=== PATIENT | female | born 1990 | race Hispanic/Latino ===

== ENCOUNTER → 2021-01-17 12:13 | Outpatient (CLI) | payer MEDICAID, SELFPAY ==
--- NOTE | 2021-01-17 12:14 | DI.US.S_ITS ---
PROCEDURE: US OB LIMITED INDICATIONS: INITIAL DATING VIABILITY OUTSIDE/PRIOR DATING DATA: Last menstrual period (LMP): October 17, 2020 . LMP-based estimated date of delivery (GARRISON): July 24, 2021 . First dating scan (date and location): [facility]: January 17, 2021 . Estimated date of delivery (GARRISON) from first dating scan: July 05, 2021 . TECHNIQUE: Real-time scanning was performed of the fetus, with image documentation. COMPARISON: None. FINDINGS: A single living intrauterine gestation is present. Presentation: Transverse left. Placenta: Placental position is posterior right , without previa. heart rate: 144 beats per minute. Maternal cervical canal: 4.9 cm long. Normal lower limit is 2.5 cm. OB gestational age measurements: BPD: 3.3 cm HC: 11.9 cm: AC: 9.6 cm FL: 1.8 cm Composite gestational age today: 15 weeks, 6 days. IMPRESSION: Single live intrauterine gestation as detailed above. Dictated by: Chirag Roe M.D. on 01/17/2021 at 13:54 Approved by: Chirag Roe M.D. on 01/17/2021 at 14:00
[2021-01-17 13:13] LABS: Add Manual Diff / Slide Review NO; Basophils Absolute Auto 0 /uL (0-100); Basophils Percent Auto 0.3 % (0-2); Eosinophils Absolute Auto 100 /uL (0-450); Eosinophils Percent Auto 1.1 % (2-4); Hematocrit 37.1 % (36-46); Hemoglobin 12.4 g/dL (12.0-16.0); Lymphocytes Absolute Auto 2000 /uL (1100-4500); Lymphocytes Percent Auto 20.3 % (25-40); Mean Corpuscular HGB Conc 33.6 % (30-36); Mean Corpuscular Hemoglobin 31.9 PG (26-34); Mean Corpuscular Volume 95.1 fL (80-100); Monocytes Absolute Auto 500 /uL (0-900); Neutrophils Absolute Auto 7100 /uL (1500-7000); Neutrophils Percent Auto 73.3 % (50-75); Platelet Count 241 X10^3/uL (150-400); Red Cell Distribution Width 12.4 % (11.6-14.8); White Blood Cell Count 9.7 X10^3/uL (4.5-11.0)
[2021-01-17 13:19] LABS: Appearance Urine UA CLOUDY; Bilirubin Urine UA NEGATIVE (NEGATIVE); Color Urine UA YELLOW; Glucose Urine UA NEGATIVE (Negative); Ketones Urine UA NEGATIVE (NEGATIVE); Leukocyte Esterase Urine UA 3+ (NEGATIVE); Nitrite Urine UA NEGATIVE (Negative); Occult Blood Urine UA TRACE-INTACT (Negative); Protein Urine UA NEGATIVE (Negative); Urobilinogen Urine UA 0.2 E.U./dL (0.2)
[2021-01-17 13:45] LABS: pH Urine UA 6.5 (4.5-8.0)
[2021-01-17 13:46] LABS: Amorphous Sediment Urine 1+; Bacteria Urine Many (>30); Culture Indicated Urine Specimen Cultured; RBC Urine 0-1/HPF (0-5/HPF); Renal Epithelial Cells Urine 0-1/HPF (0-1/HPF); Squamous Epithelial Cell Urine 5-10 /HPF (0-5/HPF); WBC Urine 5-10/HPF (0-5/HPF)
[2021-01-17 16:14] LABS: Hepatitis B Surface Antigen NEGATIVE s/c (NEGATIVE)
[2021-01-17 16:35] LABS: HIV 1 & 2 Ab/Ag 4th Gen Combo NEGATIVE (NEGATIVE); Hep C Virus Ab w/Reflex Quant NEGATIVE s/c (NEGATIVE)
[2021-01-18 06:17] LABS: RPR Screen Non Reactive (Non Reactive)
[2021-01-18 09:02] LABS: Varicella IgG Antibody 724 index (Immune >165)
== END ==
PROVIDERS: PCP Specialist; Referring Provider Specialist; Visit Provider Specialist
DX: Z3A.15 15 weeks gestation of pregnancy; Z36.87 Encounter for antenatal screening for uncertain dates
CPT/HCPCS: 36415; 76815; 80055; 81003; 81015; 86787; 86803; 86850; 86900; 86901; 87086; 87389

== ENCOUNTER → 2021-02-27 10:23 | Outpatient (CLI) | payer MEDICAID, SELFPAY ==
--- NOTE | 2021-02-27 10:24 | DI.US.S_ITS ---
PROCEDURE: US OB >= 14 WEEKS FETUS INDICATIONS: 20 WEEK ANATOMIC SURVEY OUTSIDE/PRIOR DATING DATA: Last menstrual period (LMP): October 17, 2020. LMP-based estimated date of delivery (GARRISON): July 24, 2021. First dating scan (date and location): [facility]; January 17, 2021. Estimated date of delivery (GARRISON) from first dating scan: July 05, 2021. The calculations are made using the ultrasound GARRISON of July 08, 2021. TECHNIQUE: Real-time scanning was performed of the fetus, with image documentation and biometric measurements. COMPARISON: None. FINDINGS: General: A single living intrauterine gestation is present. Presentation: Variable. Placenta: Placental position is posterior right , without previa. Amniotic fluid index: 12.4 cm, normal range is 5-24 cm. Single deepest vertical pocket is 3.6 cm. heart rate: 157 beats per minute. Maternal cervical canal: 5.3 cm long. Normal lower limit is 2.5 cm. biometrics: Biparietal diameter: 5 cm Head circumference: 18.8 cm Abdominal circumference: 16.7 cm Femur length: 3.4 cm Clinically estimated gestational age: 21 weeks, 5 days Composite gestational age from present scan: 21 weeks, 2 days Estimated weight and percentile: 414 g +/-61 g; 24th percentile Anatomic survey: Neuro: Ventricles are non-dilated at less than 10 mm. Cisterna magna is normal at 3-11 mm. Cerebellum is normal in size and morphology. Nuchal skin fold: Normal at less than 6 mm between 14-21 weeks gestational age. Face: Suboptimally visualized. Spine: No evidence for spina bifida. Heart: 4-chambered heart is present, with normal ventricular outflow tracts. Diaphragm: Diaphragm is intact. Stomach: Left-sided stomach is present. Kidneys: No hydronephrosis. Normal is less than 5 mm in 2nd trimester, less than 7 mm in 3rd trimester. Cord: 3-vessel cord has orthotopic insertion. Bladder: Normal in size. Extremities: All 4 extremities identified. IMPRESSION: Live single intrauterine gestation as detailed above. We strive to produce accurate, complete, and clear reports of imaging services. To assist us in improving patient care, this report was composed using standard report templates and voice recognition software. Therefore, it may contain abnormal punctuation, insertions and/or omissions. Occasional wrong-word or sound-alike substitutions may occur. Though we review the report and make efforts to correct it, we do recommend that the report be read carefully in proper context to recognize any text inaccuracies. Dictated by: Chirag Roe M.D. on 02/27/2021 at 12:15 Approved by: Chirag Roe M.D. on 02/27/2021 at 12:19
== END ==
PROVIDERS: PCP Specialist; Referring Provider Specialist; Visit Provider Specialist
DX: Z36.89 Encounter for other specified antenatal screening (principal); Z3A.21 21 weeks gestation of pregnancy
CPT/HCPCS: 76811

== ENCOUNTER → 2021-06-20 13:37 | Outpatient (CLI) | payer MEDICAID, SELFPAY ==
[2021-06-21 14:24] LABS: Strep Grp B PCR NEG for Grp B Strep
== END ==
PROVIDERS: PCP Specialist; Visit Provider Specialist
DX: Z34.83 Encounter for supervision of other normal pregnancy, third trimester (principal); Z3A.37 37 weeks gestation of pregnancy
CPT/HCPCS: 87653

== ENCOUNTER 2021-07-09 01:12 | Outpatient (CLI) | payer MEDICAID, SELFPAY | END 2021-07-09 02:00 | disposition home or self-care (01) | LOC: OB 07-11 06:55 | PROVIDERS: PCP Specialist; Referring Provider Specialist; Visit Provider Specialist | DX: O48.0 Post-term pregnancy (principal); Z3A.40 40 weeks gestation of pregnancy | CPT/HCPCS: 59025; 76815; G0378; G0379 ==

== ENCOUNTER 2021-07-10 16:58 | Outpatient (CLI) | payer MEDICAID, SELFPAY ==
--- NOTE | 2021-07-10 18:14 | PM.OBTRLD ---
Visit Information Visit Information Date of evaluation: 07/10/21 Primary OB Provider: Peyton Graham Reason for Evaluation: Yes non-stress test non-stress test reason: other (post dates) [facility] Medical History (Updated 07/10/21 @ 18:15 by Peyton Graham MD) Acute blood loss anemia Anemia pain Vaginal delivery Family History (Updated 01/16/21 @ 14:40 by Lyssa Suero RN) Mother Hyperlipidemia Type 2 diabetes mellitus Father Healthy adult male Grandmother No problems noted. Grandfather Myocardial infarction Hyperlipidemia Hypertension Grandmother Dementia Grandfather Type 2 diabetes mellitus Social History marital status: unmarried,living together number of children: 3 household members: spouse and children lives independently: Yes caregiver/support person: No housing: apartment pets and animals: No education level: high school occupational status: employed ([employer]) current occupational exposures/hazards: No alex/methodist: Tenriism special alex needs: No seatbelt use: always do you feel safe at home: Yes Smoking Status: Never smoker second hand exposure: No alcohol intake: former (Pre-: Occasional/once a month or less.) substance use type: does not use during the past year weight has: remained stable well-balanced diet: daily or most days daily servings fruits/ve-4 caffeine: Yes (Coffee: has cut down since , aware of limit.) Type(s) of exercise: walking and running (Pre-, stopped with . ) frequency: 3-4 times per week duration: 30-45 minutes/day Evaluation Evaluation Baseline heart rate: 140 Variability: Moderate (11-25) monitor accelerations: Present Monitor Decelerations: Absent Contraction Frequency (minutes): 10 Uterine Contraction Intensity: Mild Category of Tracing: Reactive Status: Category l Diagnosis, Plan/Disposition Final Diagnosis (1) : Status: Acute (2) 40 weeks gestation of : Status: Acute Plan/Disposition Plan: Reactive nonstress test with normal biophysical profile in the office. Patient is scheduled for induction on 07/15/2021 routine precautions reviewed OB Disposition: home
== END 2021-07-10 17:32 | disposition home or self-care (01) ==
LOC: OB 07-11 06:56
PROVIDERS: PCP Specialist; Referring Provider Specialist; Visit Provider Specialist
DX: O48.0 Post-term pregnancy (principal); Z3A.40 40 weeks gestation of pregnancy
CPT/HCPCS: 59025; G0378; G0379

== ENCOUNTER 2021-07-15 07:37 | Inpatient (IN) | payer MEDICAID, SELFPAY ==
[2021-07-15 08:00] VITALS: BP 123/76
[2021-07-15 08:15] LABS: Add Manual Diff / Slide Review NO; Basophils Absolute Auto 100 /uL (0-100); Basophils Percent Auto 0.6 % (0-2); Eosinophils Absolute Auto 100 /uL (0-450); Eosinophils Percent Auto 1.3 % (2-4); Hematocrit 35.4 % (36-46); Hemoglobin 11.8 g/dL (12.0-16.0); Lymphocytes Absolute Auto 2200 /uL (1100-4500); Lymphocytes Percent Auto 21.7 % (25-40); Mean Corpuscular HGB Conc 33.5 % (30-36); Mean Corpuscular Hemoglobin 30.7 PG (26-34); Mean Corpuscular Volume 91.6 fL (80-100); Monocytes Absolute Auto 700 /uL (0-900); Monocytes Percent Auto 6.8 % (3-14); Neutrophils Absolute Auto 7000 /uL (1500-7000); Neutrophils Percent Auto 69.6 % (50-75); Platelet Count 212 X10^3/uL (150-400); Red Blood Cell Count 3.86 X10^6/uL (4.0-5.2); Red Cell Distribution Width 14.3 % (11.6-14.8); White Blood Cell Count 10.1 X10^3/uL (4.5-11.0)
[2021-07-15] MEDS: LACTATED RINGERS 1,000 ML 100 ML IV ×3 (08:18→22:19)
--- NOTE | 2021-07-15 08:23 | PM.OBHP.1 ---
OB HPI Date/Time Date of admission: 07/15/21 Date Patient Seen: 07/15/21 Time Patient Seen: 08:00 History of Present Condition Chief complaint: INDUCTION : 5 Para: 3 Estimated Date of Delivery: 07/05/21 Estimated Gestational Age (weeks): 41 Narrative: Hallie Landaverde is a 31 year old female admitted for postdates induction Indications Indication for induction OB: post dates History of Present care: limited care (Started care at 15 weeks), initiated at week # (15), number of visits (9) and pounds weight gain (65) Dating criteria: based on 2nd trimester US only Ultrasounds: normal mid trimester US (Some structures not well seen) Obstetrical complications: none Medical complications: none Preadmission Labs Blood type: O (+) positive -: Antibody screen: negative, GBS status: negative, HBsAG: negative, HIV: negative and RPR/VDLR: negative -: Chlamydia screen: not detected and Gonorrhea screen: not detected -: Rubella: immune and Varicella: immune Quad screen: Normal 1 hr GTT: 126 Prior (ies) History: Del. DateGA/WeeksLabor LgthBirth WtSexRouteOutcomeAnesthesiaPlace DelvBreastfeedPreg CompName 02/25/08 36 10 6 lb 10 oz [facility]aginallive - [facility] w/ Nikolas. 2 mos.; low supply. pre-eclampsiaChristopher Topete 10/04/13 40 7 7 lb 12 oz [facility] noneDylan 04/06/15 7 spontaneous 09/29/16 40 4 7 lb Femalevaginallive - full termnoneI w Dr. Connor 4 mos. noneGrace Evaluation Evaluation Baseline heart rate: 130 Variability: Moderate (11-25) monitor accelerations: Present Monitor Decelerations: Absent Contraction Frequency (minutes): 15 Uterine Contraction Intensity: Mild Category of Tracing: Reactive Status: Category l Dilation (cm): 1 Effacement (%): 25 station: -3 Position of cervix: posterior Consistency: medium [facility] History Acute blood loss anemia Anemia pain Vaginal delivery Family History Mother Hyperlipidemia Type 2 diabetes mellitus Father Healthy adult male Grandmother No problems noted. Grandfather Myocardial infarction Hyperlipidemia Hypertension Grandmother Dementia Grandfather Type 2 diabetes mellitus Social History marital status: unmarried,living together number of children: 3 household members: spouse and children lives independently: Yes caregiver/support person: No housing: apartment pets and animals: No education level: high school occupational status: employed ([employer]) current occupational exposures/hazards: No alex/mandaeism: Sikhism special alex needs: No seatbelt use: always do you feel safe at home: Yes Smoking Status: Never smoker second hand exposure: No alcohol intake: former (Pre-: Occasional/once a month or less.) substance use type: does not use during the past year weight has: remained stable well-balanced diet: daily or most days daily servings fruits/ve-4 caffeine: Yes (Coffee: has cut down since , aware of limit.) Type(s) of exercise: walking and running (Pre-, stopped with . ) frequency: 3-4 times per week duration: 30-45 minutes/day Meds Home Medications and Allergies Home Medications Medication Instructions Recorded Confirmed Type vitamin-ferrous fumarate 1 cap PO QDAY #90 cap 10/01/16 07/15/21 Rx 65 mg iron-folic acid 1 mg capsule (Mynatal) Allergies Allergy/AdvReac Type Severity Reaction Status Date / Time No Known Drug Allergies Allergy Verified 07/15/21 08:07 Review of Systems Review of Systems Narrative: Patient denies headaches, scotomata, epigastric pain. Good movement. No leakage of fluid. On and off contractions but nothing regular. OB Exam Narrative Exam Narrative: Blood pressure 123/76, pulse of 88 HEENT exam within normal limits. Lungs are clear to auscultation and percussion. Heart is regular rate and rhythm no S3-S4 murmurs. Abdomen is gravid. Fetus is vertex. Extremities without edema and nontender. Objective Labs Result Diagrams: 07/15/21 08:05 Labs: Laboratory Results - last 24 hr 07/15/21 08:05 WBC 10.1 RBC 3.86 L Hgb 11.8 L Hct 35.4 L MCV 91.6 MCH 30.7 MCHC 33.5 RDW 14.3 Plt Count 212 Neut % (Auto) 69.6 Lymph % (Auto) 21.7 L [place] % (Auto) 6.8 Eos % (Auto) 1.3 L Baso % (Auto) 0.6 Neut # (Auto) 7000 Lymph # (Auto) 2200 [place] # (Auto) 700 Eos # (Auto) 100 Baso # (Auto) 100 Assessment and Plan Assessment and Plan Assessment and Plan narrative: 41 and 3/7th weeks gestation admitted for Pitocin induction. Anticipate vaginal delivery. Time Spent with Patient Total time spent with greater than 50% in coordination of care (as documented) at patient's floor/unit and/or counseling patient:: less than 15 minutes
[2021-07-15] MEDS: OXYTOCIN PREMIX 30 UNIT/500 ML PLAST..BAG IV (08:28)
[2021-07-15 08:48] LABS: COVID19 -Nasal RAPID Negative (Negative)
--- NOTE | 2021-07-15 15:36 | PM.OBPNLAB ---
Date/Time Date Patient Seen: 07/15/21 Time Patient Seen: 15:37 Pain Control Pain control: tolerating well Pelvic Exam Dilation (cm): 5 Effacement (%): 75 station: -2 Amniotic membrane status: Ruptured (AROMed) Contractions Contractions on admission: regular Monitor mode: External Pitocin rate (mU/min): 8 Contraction frequency (min): 3 Contraction duration (min): 1 Contraction pattern: Regular Contraction intensity: Strong/Firm Status status: Category l Heart Rate Baseline: 140 Monitor Accelerations: Present Monitor Decelerations: Absent Monitor Variability: Moderate Assessment and Plan Assessment: induction ongoing Plan: continuous present management
--- NOTE | 2021-07-15 18:55 | PM.OBPNLAB ---
Date/Time Date Patient Seen: 07/15/21 Time Patient Seen: 18:56 Pain Control Pain control: tolerating well Pelvic Exam Dilation (cm): 5 Effacement (%): 75 station: -2 Amniotic membrane status: Ruptured (AROMed) Contractions Contractions on admission: regular Monitor mode: Internal Pitocin rate (mU/min): 7 Contraction frequency (min): 3 Contraction duration (min): 1 Contraction pattern: Regular Contraction intensity: Strong/Firm Intrauterine tone measurement: 50 Status status: Category l Heart Rate Baseline: 140 Monitor Accelerations: Present Monitor Decelerations: Absent Monitor Variability: Moderate Assessment and Plan Assessment: induction ongoing Plan: continuous present management
[2021-07-16] VITALS (10 sets, daily range): BP systolic 107–121; BP diastolic 57–69; PULSE 78–100; RESP 18–20; TEMP 36.2–37.1
[2021-07-16] MEDS: BENZOCAINE/MENTHOL 1 LOZ PKT 1 EACH PO ×2 (01:49→05:46)
[2021-07-16] MEDS: LACTATED RINGERS 1,000 ML 100 ML IV (01:52)
--- NOTE | 2021-07-16 07:14 | P.PCNOB_ITS ---
Events: Labor Induction ( for postdates) Labor & Delivery Delivery date: 07/16/21 Induction method: per pitocin protocol Delivery augmentation: rupture of membranes Delivery monitor: external FHT, external uterine and internal uterine Route of delivery: vacuum extraction Indication for instrumentation: maternal exhaustion L&D Laceration Description: Labial ( left near clitoris) Delivery repair: chromic (4 0) Estimated blood loss (mL): 600 Anesthesia Type: Epidural Narrative: Patient arrived on Labor and delivery for Pitocin induction for postdates at 41 and half weeks by dates. She under went AROM for clear fluid. She received an epidural catheter for pain control. Patient had poor progress in labor and so an internal toco was placed to document adequacy of contractions. It took some time to get the contractions adequate. Patient then began making progress. heart tones category 1 to category 2 throughout labor. The patient pushed for greater than 1 hour and had maternal exhaustion so vacuum was placed. the vacuum popped off x1 than when replace the infant was brought to the perineum and delivered the head. The vacuum was released. The 's shoulders were delivered and the baby placed on maternal abdomen. After the cord stopped pulsating the cord was clamped, cut, and cord bloods obtained. The placenta it took some time to be delivered. After delivery the patient had a mild postpartu m hemorrhage, 600 cc. This was treated with rectal Cytotec after Pitocin bolus. Baby 1: gender: Male Presentation: vertex Position: Right Occiput Anterior Placenta delivery description: Spontaneous Cord Vessel Description: 3 Vessels score (1 min): 8 score (5 min): 9 weight: 9 lb 1 oz Plan for aftercare: Routine care
[2021-07-16] MEDS: METHYLERGONOVINE 0.2 MG/ML VIAL IM ×2 (08:19→08:30)
[2021-07-16] MEDS: TRANEXAMIC ACID 1,000 MG in SODIUM CHLORIDE 0.9% 100 ML 200 ML IV (08:23)
[2021-07-16] MEDS: miSOPROStoL 200 MCG TABLET 1000 MCG PR (08:25)
--- NOTE | 2021-07-16 08:30 | P.PNOB_ITS ---
Subjective - OB Subjective Patient comments: no complaints [place] baby status: doing well [place] feeding status: exclusively breast feeding Date Patient Seen: 07/16/21 Time Patient Seen: 08:30 Interval history: Patient with hemorrhage 2 hours post delivery. Patient had been doin g well and had breastfed. The patient started to feel unwell and with the next fundal check there was a large amount blood, and clots that was expressed. Patient was given IM Methergine, TXA was started, a Mccallum catheter was placed, IV Pitocin again bolused. Patient had previously gotten Cytotec. Appeared to be over 800 cc of blood and clot. Patient initially had some low blood pressures which resolved with IV fluid bolus. Vaginal exam did not reveal any retained clots. Objective Labs Result Diagrams: 07/15/21 08:05 Labs: Laboratory Results - last 24 hr 07/15/21 07/15/21 08:00 08:05 SARS-CoV-2 (PCR) Negative Blood Type O Positive Antibody Screen Negative Crossmatch See Detail Assessment & Plan Plan day: 0 Comments: 2 hour post delivery a additional hemorrhage. Patient now is received Pitocin, Cytotec, Methergine, TXA. Mccallum catheter replaced. Monitor for further bleeding. Patient will be transfused 2 units of blood. Time Spent With Patient Time: Total time spent is greater than 50% in coordination of care (as documented) at patient's floor/unit and/or counseling patient: Time with patient: less than 15 minutes
[2021-07-16] MEDS: CARBOPROST 250 MCG/ML AMPUL IM (08:56)
[2021-07-16] MEDS: OXYTOCIN PREMIX 30 UNIT/500 ML PLAST..BAG 200 UNIT IV (09:41)
[2021-07-16] MEDS: ACETAMINOPHEN 325 MG TABLET 650 MG PO ×3 (10:44→23:19)
[2021-07-16] MEDS: PRENATAL VIT,CALC/IRON/FOLIC 1 TABLET 1 TAB PO (10:44)
[2021-07-16] MEDS: IBUPROFEN 600 MG TABLET PO ×3 (10:45→23:19)
[2021-07-16] MEDS: FERROUS SULFATE 325 MG TABLET PO (10:45)
[2021-07-17 05:21] LABS: Add Manual Diff / Slide Review NO; Basophils Absolute Auto 0 /uL (0-100); Basophils Percent Auto 0.2 % (0-2); Eosinophils Absolute Auto 200 /uL (0-450); Eosinophils Percent Auto 1.1 % (2-4); Hematocrit 27.2 % (36-46); Hemoglobin 9.1 g/dL (12.0-16.0); Lymphocytes Absolute Auto 3100 /uL (1100-4500); Lymphocytes Percent Auto 21.6 % (25-40); Mean Corpuscular HGB Conc 33.6 % (30-36); Mean Corpuscular Hemoglobin 30.7 PG (26-34); Mean Corpuscular Volume 91.4 fL (80-100); Monocytes Absolute Auto 1000 /uL (0-900); Monocytes Percent Auto 6.8 % (3-14); Neutrophils Absolute Auto 10100 /uL (1500-7000); Neutrophils Percent Auto 70.3 % (50-75); Platelet Count 154 X10^3/uL (150-400); Red Blood Cell Count 2.98 X10^6/uL (4.0-5.2); Red Cell Distribution Width 14.4 % (11.6-14.8); White Blood Cell Count 14.4 X10^3/uL (4.5-11.0)
[2021-07-17] MEDS: ACETAMINOPHEN 325 MG TABLET 650 MG PO ×2 (05:33→20:32)
[2021-07-17] MEDS: IBUPROFEN 600 MG TABLET PO ×3 (05:33→20:32)
[2021-07-17] MEDS: PRENATAL VIT,CALC/IRON/FOLIC 1 TABLET 1 TAB PO (09:10)
[2021-07-17] MEDS: FERROUS SULFATE 325 MG TABLET PO (09:10)
--- NOTE | 2021-07-17 13:33 | PM.OBPN.1 ---
Subjective - OB Subjective Patient comments: no complaints [place] baby status: doing well and nursing well feeding status: exclusively breast feeding Date Patient Seen: 07/17/21 Time Patient Seen: 13:33 Interval history: Patient is ambulatory without dizziness. She has mild cramping pain. She is breast-feeding without difficulty. Exam Vital Signs (past 8 hours): Blood pressure 112/62, pulse 72, temperature 98.4? Narrative Exam Narrative: Patient's abdomen is soft, nontender. Uterus is firm, at U, minimally tender. Mild lochia. Extremities without edema and nontender. Objective Labs Result Diagrams: 07/17/21 05:05 Labs: Laboratory Results - last 24 hr 07/15/21 07/17/21 08:05 05:05 WBC 14.4 H RBC 2.98 L Hgb 9.1 L Hct 27.2 L MCV 91.4 MCH 30.7 MCHC 33.6 RDW 14.4 Plt Count 154 Neut % (Auto) 70.3 Lymph % (Auto) 21.6 L [place] % (Auto) 6.8 Eos % (Auto) 1.1 L Baso % (Auto) 0.2 Neut # (Auto) 79531 H Lymph # (Auto) 3100 [place] # (Auto) 1000 H Eos # (Auto) 200 Baso # (Auto) 0 Crossmatch See Detail Assessment & Plan Assessment and Plan (1) Vaginal delivery: Status: Acute (2) hemorrhage: Status: Acute Plan day: 1 plan OB: routine care Comments: Due to patient's significant hemorrhage and significant distance from the hospital will monitor her again overnight. Home in a.m. if stable. Time Spent With Patient Time: Total time spent is greater than 50% in coordination of care (as documented) at patient's floor/unit and/or counseling patient: Time with patient: less than 15 minutes
[2021-07-18] MEDS: IBUPROFEN 600 MG TABLET PO ×2 (02:55→08:58)
[2021-07-18] MEDS: ACETAMINOPHEN 325 MG TABLET 650 MG PO ×2 (02:55→08:58)
--- NOTE | 2021-07-18 07:56 | P.DS_ITS ---
Discharge Providers Provider Date of admission: 07/15/21 07:37 Discharge Date: 07/18/21 Primary care physician: Peyton Graham MD Consults: 07/15/21 08:00 Consult to Anesthesiology Urgent Comment: Consulting Provider: Anesthesiologist Reason for consultation: epidural Has provider been notified: No 07/17/21 07:12 Consult to Wastewater Supervisor Routine Comment: Discharge provider: Peyton Graham MD Summary Hospital Course Date Patient Seen: 07/18/21 Time Patient Seen: 07:56 Diagnoses: postdates admitted for induction with spontaneous vaginal delivery and hemorrhage Hospital Course: Patient arrived on Labor and delivery for induction for postdates. She was started on Pitocin. She had very slow progress in labor. She received an epidural catheter for pain control. She had a spontaneous vaginal delivery with a hemorrhage initially and then again 2 hours post . She received 2 units of packed red blood cells. Since that time she has been doing well. She feels a little weak but is ambulatory. She is urinating well. Passing gas. No headaches, scotomata, epigastric pain. Peripartum Data Delivery Method: Natural Vaginal Laceration Description: Labial Procedures: Pitocin induction, epidural catheter, spontaneous vaginal delivery with repair of first-degree labial tear complications: transfusion ( 2 units packed red blood cell) and uterine atony ( 1400 cc of blood loss) [place] 1: Gender: Male Disposition of : home Discharge Diagnosis (1) Vaginal delivery: Status: Acute (2) hemorrhage: Status: Acute Status at Discharge Cognitive/behavioral status at discharge: oriented Functional status at discharge: independent ambulation Overall status at discharge: patient is progressing back to baseline Time Spent with Patient Time attestation: Total time spent providing and/or coordinating discharge services: Time spent: Less than 30 minutes Objective Labs Result Diagrams: 07/17/21 05:05 Exam Vital Signs (past 8 hours): blood pressure 120/79, pulse 64, temperature 98.2? Narrative Exam Narrative: Abdomen is soft, nontender. Uterus is firm, at U, nontender. Mild lochia. Extremities without edema and nontender. O-positive, rubella immune, She received Tdap in the 3rd trimester. Discharge Plan Discharge Plan Patient Disposition: Home Discharge orders & Medications Prescriptions: New ferrous sulfate 325 mg (65 mg iron) Tablet 325 mg PO DAILY Qty: 30 0RF docusate sodium 250 mg capsule 250 mg PO DAILY Qty: 30 0RF Discontinued Mynatal 1 EACH capsule 1 cap PO QDAY Qty: 90 3RF Follow up/Referrals: Peyton Graham MD [Primary Care Provider] - 08/28/21 ( appointment in [place]) Diet/Activity/Treatments Diet: Regular Activity: nothing in vagina for 6 weeks Skin/Wound/Dressing Care Report to your healthcare provider any signs of infection, such as:: chills, fever and increased pain Discharge Data Primary Care Provider: Peyton Graham
[2021-07-18 09:30] VITALS: BP 121/65; PULSE 86; RESP 18; TEMP 37.1
== END 2021-07-18 11:05 | disposition home or self-care (01) | DRG 806 ==
PROVIDERS: Admitting Provider Specialist; PCP Specialist; Referring Provider Specialist; Visit Provider Specialist
DX: O48.0 Post-term pregnancy (principal); O72.2 Delayed and secondary postpartum hemorrhage; Z37.0 Single live birth; O75.81 Maternal exhaustion complicating labor and delivery; Z3A.41 41 weeks gestation of pregnancy; O70.0 First degree perineal laceration during delivery; O99.02 Anemia complicating childbirth; D64.9 Anemia, unspecified; Z20.822 Contact with and (suspected) exposure to COVID-19
CPT/HCPCS: 01967; 36415; 36430; 59050; 59409; 85025; 86850; 86900; 86901; 87635; C9803; P9016; G0379; J2210; J2590; S0191

== ENCOUNTER → 2021-12-25 14:35 | Outpatient (CLI) | payer MEDICAID, SELFPAY ==
[2021-12-25 15:09] LABS: COVID19 -Nasal RAPID Negative (Negative)
== END ==
PROVIDERS: Visit Provider Obstetrics & Gynecology
DX: Z20.822 Contact with and (suspected) exposure to COVID-19; Z01.812 Encounter for preprocedural laboratory examination
CPT/HCPCS: 87635

== ENCOUNTER 2021-12-27 09:41 | Day surgery (SDC) | payer MEDICAID, SELFPAY ==
[2021-12-25 10:49] VITALS: BMI 32.9
--- NOTE | 2021-12-27 | PATH_ITS ---
[facility] Accession Number: [id number] . 01 Material submitted: . cervix - CERVIX LEEP AT 12 O'CLOCK . 01 Diagnosis: Cervix LEEP At 12 o'clock: High grade squamous intraepithelial lesion/DARLEEN 2 present in the 3 to 6 o'clock, 6 to 9 o'clock, and 9 to 12 o'clock quadrants. Focal low grade squamous intraepithelial lesion/DARLEEN 1 present in the 3 to 6 o'clock quadrant. The apparent endocervical margin is negative for dysplasia. The apparent ectocervical margin is negative for dysplasia. Changes consistent with previous instrumentation are present. No invasive tumor identified. [facility] 01/01/2022 1004 Local . 01 Comment: The biopsy results correlate with Pap smear [id number]. . 01 Electronically signed: . Negin Wellington MD, Pathologist NPI- [id number] . 01 Gross description: . The specimen is received in formalin labeled with the patient's name and cervix LEEP BX at 12 o'clock, and consists of an incised fragment of cervix reapproximated to measure 2.0 x 2.0 x 0.9 cm. The requisition states LEEP biopsy cervix at 12 o'clock, so the incised area is presumed 12 o'clock as no sutures or other identifying webster are noted. The cervical os is slit-like and is reapproximated to measure 0.8 cm in diameter. The ectocervix is hernandez and finely granular. The endocervical margin is inked orange while the remaining stromal margins are inked blue. The specimen is radially sectioned and submitted entirely as follows: . A1: 12 to 3 o'clock. A2: 3 to 6 o'clock. A3: 6 to 9 o'clock. A4: 9 to 12 o'clock. See diagram. ([id number]) /MRV 12/31/2021 1441 Local . 01 Pathologist provided ICD-10: R87.613, N87.1 . 01 CPT . 451129 Performed at: 01 [facility] [address] [place] [address], [place], [place] [id number] MD Rasheed Prado MD Phone: [phone]
[2021-12-27 10:12] VITALS: BP 128/83; PULSE 81; RESP 16; TEMP 36.7; O2SAT 99; BMI 32.3
[2021-12-27] MEDS: LACTATED RINGERS 1,000 ML 42 ML IV (10:34)
--- NOTE | 2021-12-27 11:11 | PM.PREOP ---
Pre-operative Note COVID-19 COVID-19 status: Negative Result date/Date tested (Pos, Neg/Pending): 12/26/21 Criteria for continued procedure: Non-surgical alternatives not available or appropriate per current SOC Interval Note History & Physical reviewed/Exam performed by Physician: Yes Changes to H&P: No
--- NOTE | 2021-12-27 11:39 | SUR.OPER ---
Lithotomy on padded OR bed, head on pillow, arms secured on padded arm boards at <90 degrees abduction. Legs secured in padded yellow fins stirrups.
[2021-12-27] MEDS: ACETIC ACID 500 ML IRRIG 20 ML TOP (11:40)
--- NOTE | 2021-12-27 11:56 | P.OP_ITS ---
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 After consideration of all options, the patient has decided to proceed with loop electrosurgical excision procedure and she presents today for her scheduled surgery. Surgeon: Anurag Hollis Anesthesia Type: General Operative Notes Findings: Parous cervix with well circumscribed transformation zone demonstrating focal areas of aceto-white epithelium. The entire TZ with all AWE was removed via LEEP. Closure Type: not applicable Specimen(s): other (LEEP cone, cut at 12:00) Estimated blood loss (mL): 50 Blood products transfused: none Procedure in detail: With the patient under satisfactory general anesthesia in the modified dorsal lithotomy position, the perineum and lower abdomen were prepped and draped in the usual manner for LEEP. A pre-surgical safety time-out was then taken in accordance with [facility] [place] protocols. An insulated speculum was placed in the vagina and the cervix visualized. Vinegar solution was then placed in the vagina and the aceto-white epithelium allowed to develop. Once the area of aceto-white epithelium had been well delineated, a LEEP procedure was then performed using a 20 x 10 mm loop with 50 w pure cut. The cone was then cut at 12:00 and submitted in formalin for pathologic evaluation. Monopolar cautery was then used to establish complete hemostasis of the cone bed and Monsel's solution applied to consolidate the hemostasis. There was no bleeding from the cervix at the completion of the case and the operation was terminated by removal of the speculum from the vagina. The patient was then awakened from anesthesia and transported to the PACU for a period of observation and recovery having tolerated the procedure well. Complications: none Post-operative Condition: stable Disposition: PACU Plan for aftercare: Routine postoperative care with follow-up plan for 2 weeks postop.
[2021-12-27 12:02] VITALS: BP 120/74; PULSE 70; RESP 12; TEMP 36.3; O2SAT 98
--- NOTE | 2021-12-27 12:02 | SUR.OPER ---
MONSELS TOPICAL TO CERVIX
[2021-12-27 12:03] VITALS: BP 121/67; PULSE 65; RESP 14; O2SAT 99
[2021-12-27 12:08] VITALS: BP 120/77; PULSE 60; RESP 14; TEMP 37; O2SAT 99
[2021-12-27 12:13] VITALS: BP 126/73; PULSE 59; RESP 12; O2SAT 95
[2021-12-27 12:21] VITALS: BP 121/76; PULSE 58; RESP 16; TEMP 36.7; O2SAT 99
== END 2021-12-27 12:41 | disposition home or self-care (01) ==
PROVIDERS: Referring Provider Obstetrics & Gynecology; Visit Provider Obstetrics & Gynecology
PROC: 0UBC7ZZ Excision of Cervix, Via Natural or Artificial Opening (ICD-10-PCS; CPT 57522; principal; 2021-12-27 10:45)
DX: N87.1 Moderate cervical dysplasia (principal); D64.9 Anemia, unspecified
CPT/HCPCS: 57522; 81025; J1885; J2250; J2704; J3010